=== PATIENT | female | born 1985 | race African-American/Black ===

== ENCOUNTER 2019-12-27 17:18 | Inpatient (IN) | payer MEDICAID ==
[~2019-12-27] VITALS: Ht 165.1 cm; Wt 63.5 kg
[2019-12-27] MEDS ORDERED: LACTATED RINGERS 500 ML IV SCH (17:34)
[2019-12-27] MEDS ORDERED: DEXT 5%/LR + PITOCIN 20UNITS/L 1,000 ML IV SCH ×2 (17:34→19:25)
[2019-12-27] MEDS ORDERED: LIDOCAINE HCL 1% 20ML VIAL (Pyxis) INJ INFIL SCH (17:45)
[2019-12-27] MEDS ORDERED: METHYLERGONOVINE MALEATE 0.2 MG/ML IM PRN (17:45)
[2019-12-27] MEDS ORDERED: CARBOPROST TROMETHAMINE 250 MCG/ML AMPUL IM PRN (17:45)
[2019-12-27] MEDS ORDERED: BUTORPHANOL TARTRATE 2 MG/ML VIAL IV PRN (17:45)
[2019-12-27 19:27] LABS: BASOPHILS % 0.5 % (0.0-2.0); EOSINOPHILS % 0.4 % (0.0-5.0); HEMATOCRIT. 31.8 % (36.0-48.0); HEMOGLOBIN. 9.8 g/dL (12.0-16.0); MEAN CORPUSCULAR HEMOGLOBIN 20.1 pg (28.0-32.0); MEAN CORPUSCULAR VOLUME 65.4 fL (81.0-99.0); MEAN PLATELET VOLUME 8.6 fl (7.4-10.4); MONOCYTES % 5.2 % (2.0-8.0); NEUTROPHILS % 78.9 % (40.0-76.0); PLATELET 306 x1000/uL (130-400); RED BLOOD CELL COUNT 4.86 mill/uL (4.2-5.4); RED CELL DISTRIBUTION WIDTH 20.4 % (11.6-14.6)
[2019-12-27] MEDS ORDERED: RHO(D) IMMUNE GLOBULIN 300 MCG/SYR IM PRN (19:30)
[2019-12-27] MEDS ORDERED: HEMORRHOIDAL SUPP PR PRN (19:30)
[2019-12-27 19:37] LABS: PARTIAL THROMBOPLASTIN TIME 24.9 sec (23.4-31.0); PROTHROMBIN TIME 10.1 sec (9.6-11.0)
[2019-12-27 19:59] LABS: PLATELET ESTIMATE NORMAL
[2019-12-27 20:07] LABS: HEPATITIS B SURFACE ANTIGEN NEGATIVE
[2019-12-27 20:15] VITALS: BP 109/76
[2019-12-27] MEDS ORDERED: DOCUSATE SODIUM 100MG CAPSULE PO SCH (21:00)
[2019-12-27] MEDS: IBUPROFEN 800MG TABLET PO PRN (21:16)
[2019-12-27 21:30] VITALS: BP 110/72
[2019-12-28 00:15] VITALS: BP 120/83
[2019-12-28 00:32] LABS: CLARITY URINE TURBID (CLEAR); COLOR URINE RED (YELLOW); KETONES URINE NEGATIVE (NEGATIVE); LEUKOCYTE ESTERASE URINE 3+ (NEGATIVE); NITRITE URINE POSITIVE (NEGATIVE); OCCULT BLOOD URINE 2+ (NEGATIVE); PROTEIN URINE 2+ (NEGATIVE); SPECIFIC GRAVITY URINE 1.014 (1.005-1.030); UROBILINOGEN URINE 0.2 E.U./dL (0.2-1.0)
[2019-12-28 00:51] LABS: *BARBITURATES SCREEN URINE NEGATIVE (NEGATIVE); *BENZODIAZEPINES SCREEN URINE NEGATIVE (NEGATIVE); *COCAINE SCREEN URINE NEGATIVE (NEGATIVE); METHADONE URINE SCREEN NEGATIVE (NEGATIVE); OPIATES URINE SCREEN NEGATIVE (NEGATIVE)
[2019-12-28 00:52] LABS: CANNABINOID URINE SCREEN NEGATIVE (NEGATIVE); PHENCYCLIDINE URINE SCREEN NEGATIVE (NEGATIVE)
[2019-12-28 00:58] LABS: *AMPHETAMINES SCREEN URINE PRESUMTIVE POSITIVE (NEGATIVE)
[2019-12-28] MEDS: IBUPROFEN 800MG TABLET PO PRN ×2 (03:20→15:30)
[2019-12-28 03:30] VITALS: BP 133/74
[2019-12-28 06:54] LABS: BASOPHILS % 0.4 % (0.0-2.0); EOSINOPHILS % 0.6 % (0.0-5.0); HEMATOCRIT. 23.4 % (36.0-48.0); HEMOGLOBIN. 7.3 g/dL (12.0-16.0); LYMPHOCYTES % 14.4 % (20.0-50.0); MEAN CORPUSCULAR HEMOGLOBIN 20.2 pg (28.0-32.0); MEAN CORPUSCULAR VOLUME 65.1 fL (81.0-99.0); MEAN PLATELET VOLUME 7.8 fl (7.4-10.4); MONOCYTES % 6.2 % (2.0-8.0); NEUTROPHILS % 78.4 % (40.0-76.0); PLATELET 256 x1000/uL (130-400); RED CELL DISTRIBUTION WIDTH 20.5 % (11.6-14.6)
[2019-12-28 07:30] VITALS: BP 119/73
[2019-12-28] MEDS: PRENATAL VIT/FE FUMARATE/FA TABLET PO SCH (08:46)
[2019-12-28] MEDS: IBUPROFEN 400MG TABLET PO PRN ×2 (08:48→21:45)
[2019-12-28 16:00] VITALS: BP 119/76
[2019-12-28 20:30] VITALS: BP 132/69
[2019-12-29] MEDS: IBUPROFEN 800MG TABLET PO PRN (01:12)
[2019-12-29 04:00] VITALS: BP 113/65
[2019-12-29] MEDS ORDERED: IBUP-2030 PO (07:11)
[2019-12-29] MEDS ORDERED: DOCU-150 PO (07:11)
[2019-12-29] MEDS ORDERED: NITR-87 MT (07:11)
[2019-12-29] MEDS ORDERED: FERR325T6 MT (07:11)
[2019-12-29 07:15] VITALS: BP 110/77
[2019-12-29] MEDS: PRENATAL VIT/FE FUMARATE/FA TABLET PO SCH (08:20)
[2019-12-29] MEDS: IBUPROFEN 400MG TABLET PO PRN (08:21)
[2019-12-29 14:00] VITALS: BP 112/68
[2020-01-04 15:11] LABS: AMPHETAMINE CONF URINE Positive (.)
== END 2019-12-29 18:30 | disposition home or self-care (01) | DRG 560 ==
LOC: EDBD 17:18 → OBSVTOIN 17:18 → 8 EST LDRP 17:18 → 8EST 20:26
PROVIDERS: ADMIT Obstetrics & Gynecology; ATTEND Obstetrics & Gynecology
PROC: 10E0XZZ Delivery of Products of Conception, External Approach (ICD-10-PCS; principal; 2019-12-27)
DX: O76 Abnormality in fetal heart rate and rhythm complicating labor and delivery (principal); O77.0 Labor and delivery complicated by meconium in amniotic fluid; O99.324 Drug use complicating childbirth; O99.02 Anemia complicating childbirth; F15.10 Other stimulant abuse, uncomplicated; Z37.0 Single live birth; Z3A.00 Weeks of gestation of pregnancy not specified; O23.40 Unspecified infection of urinary tract in pregnancy, unspecified trimester
CPT/HCPCS: 36415; 80305; 80307; 81003; 85025; 86592; 86703; 86762; 86850; 86900; 87340; 99281; J2590

== ENCOUNTER 2021-08-19 03:42 | Emergency (ER) | payer MEDICAID ==
[~2021-08-19] VITALS: Ht 172.7 cm; Wt 52.0 kg
[~2021-08-19 03:42] MED LIST: DOCU-150 PO; FERR325T6 MT; IBUP-2030 PO; NITR-87 MT
[2021-08-19 03:45] VITALS: BP 143/99
[2021-08-22 09:10] LABS: NEISSERIA GONORRHOEAE NAA Negative (Negative)
== END 2021-08-19 04:37 | disposition home or self-care (01) ==
LOC: ER 03:53
DX: Z20.2 Contact with and (suspected) exposure to infections with a predominantly sexual mode of transmission (principal)
CPT/HCPCS: 87491; 87591; 99281